=== PATIENT | female | born 1995 | race Caucasian/White ===

== ENCOUNTER 2019-09-10 09:57 | Emergency (ER) | payer BC, OTHER ==
[~2019-09-10] VITALS: Ht 167.6 cm; Wt 83.9 kg
[2019-09-10] MEDS ORDERED: MOBIC7.5 MG PO (11:47)
[2019-09-10 12:18] VITALS: BP 139/87
== END 2019-09-10 12:18 | disposition home or self-care (01) ==
LOC: ER 09:57
DX: S05.12XA Contusion of eyeball and orbital tissues, left eye, initial encounter (principal); W22.03XA Walked into furniture, initial encounter; Y93.89 Activity, other specified; Y92.89 Other specified places as the place of occurrence of the external cause; Y99.0 Civilian activity done for income or pay